=== PATIENT | female | born 1975 ===

== ENCOUNTER 2024-06-28 14:08 | Emergency (ER) | payer OTHER, SELFPAY ==
--- OUTSIDE RECORDS SUMMARY | 2024-06-28 14:10 | XMS_ITS | Clinical Summary ---
Author Organization [facility] Address [address] [place] [id number] Care Team Providers Care Technical Associate Name Role Phone [facility], [facility] Pro vider Allergies Active Allergy Reactions Criticality Noted Date Comments Bacitracin Rash 08/25/2021 Diphenhydramine Hives 10/23/2008 Celecoxib Edema 10/04/2017 Meloxicam Palpitations,Headache 10/04/2017 Penicillins Hives High 06/19/2012 Poison Chio Extract Hives 02/07/2017 Poison Kelso Extract Hives 07/22/2015 Irlqk-Fuobq-Fbusetv-Pramoxine Hives 2017 Wool Hives 05/04/2016 Medications CPAPIndications :SOTERO (obstructive sleep apnea) autoCPAP, heated humidifier, mask, headgear, filters and tubing. Pressure: 4-15cm/H2O Length of Need: 99 1 Device 0 08/12/19 16 Active nicotine (NICOTROL) 10 mg inhalerIndicati ons:Tobacco dependence Inhale 10 mg by mouth every hour while awake as needed for Nicotine Craving. 168 cartridge 02/04/20 17 Active HYDROcodone-gale taminophen, 5-325 mg, (NORCO) per tabletIndicatio ns:Achilles tendinosis Take 1-2 tablets by mouth every 4 hours if needed for Pain Max acetaminophen dose: 4000 mg in 24 hrs. 60 tablet 02/07/2017 9:44 AM CDT 02/08/20 17 Active diclofenac 1 % topical (VOLTAREN) gelIndications: Achilles tendinitis, unspecified laterality Apply topically to affected area(s) 4 times daily. 1-2 grams each application 1 Tube 2 07/22/19 18 Active blood sugar diagnostic (CONTOUR NEXT TEST STRIPS) stripIndication s:Type 2 diabetes mellitus without complication, without long-term current use of insulin (HC) Contour NEXT strips. Test 3 times per day. 100 Strip 12 01/31/20 18 Active lancets (MICROLET LANCET)Indicati ons:Type 2 diabetes mellitus without complication, without long-term current use of insulin (HC) For testing blood sugars at home 100 Each 12 01/31/20 18 Active aspirin chewable 81 mg chewable tablet Take 1 tablet by mouth once daily with a meal. 0 05/04/19 19 Active atorvastatin (LIPITOR) 40 mg tabletIndicatio ns:Type 2 diabetes mellitus without complication, without long-term current use of insulin (HC) Take 1 tablet by mouth at bedtime. 90 tablet 3 12/06/19 19 Active lisinopriL (PRINIVIL; ZESTRIL) 5 mg tabletIndicatio ns:Hypertension , unspecified type,Type 2 diabetes mellitus without complication, without long-term current use of insulin (HC) Take 1 Tablet (5 mg) by mouth once daily. 90 tablet. 3 08/28/19 22 Active metFORMIN (GLUCOPHAGE) 500 mg tabletIndicatio ns:Type 2 diabetes mellitus without complication, without long-term current use of insulin (HC) Take 1 Tablet (500 mg) by mouth 2 times daily with meals. 60 Tablet 1 08/28/19 22 Active triamcinolone (ARISTOCORT; KENALOG) 0.1 % creamIndication s:Psoriasis Apply topically to affected area(s) 3 times daily. 80 g 3 08/28/19 22 Active Active Problems Problem Noted Date Diagnosed Date Type 2 diabetes mellitus wit hout complication, without long-term current use of insulin 01/27/2018 Overview (01/27/2018): Diagnosed 12/2017 Morbid obesity with BMI of 40.0-44.9, adult /08/2015 Tobacco dependence 09/17/2015 Psoriasis 09/17/2015 SOTERO 07/27/2015 AHI-26 (underestimated) 08/12/2015 Resolved Problems Problem Noted Date Diagnosed Date Resolved Date No Significant Past Medical History 09/17/2015 Encounters Date Type Department Care Team Description 06/28/[address] [facility] Nurse Triage Clinic, [facility] Facial Numbness; Weak 06/28/2024 Nurse Triage [facility] [address] [facility] [place] [address] Pcp, No Chest Pain; Dizzy; Lightheaded; Numbness from Last 3 Months Immunizations Name Administration Dates Next Due Influenza, IIV3 (Age >=3 years) 02/08/2012,02/15 Tdap 10/22/2008 Family History Relation Name Status Comments Brother Alive Father Alive heart disease Maternal Grandfather Maternal Grandmother Mother Alive Paternal Grandfather Paternal Grandmother Sister Alive Social History Tobacco Use Types Packs/Day Years Used Date Smoking Tobacco: Every Day Cigarettes Smokeless Tobacco: Never Tobacco Cessation:Ready to Q uit: No; Counseling Given: Yes Comments:Between 0.5 and 1 pack per day Alcohol Use Standard Drinks/Week Comments Not Currently 0 (1 standard drink = 0.6 oz pur e alcohol) Rare PHQ-2 Answer Date Recorded PHQ-2 Score 2 07/02/2018 Comments No Sex and Gender Information Value Date Recorded Sex Assigned at Not on file 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 Gender Identity Not on file Sexual Orientation Not on file Occupation Industry Job Start Date Job End Date [employer] Not on file Not on file Not on file Obstetrics History Last Filed Vital Signs Vital Sign Reading Time Taken Comments Blood Pressure 171/112 08/27/2021 9:12 PM CDT Pulse 97 08/27/2021 9:12 PM CDT Temperature 36.9 C (98.5 F) 08/27/2021 8:06 PM CDT Respiratory Rate 16 08/27/2021 8:06 PM CDT Oxygen Saturation 97% 08/27/2021 9:12 PM CDT Inhaled Oxygen Concentration - - Weight 105.7 kg (233 lb) 08/27/2021 8:06 PM CDT Height 162.6 cm (5' 4) 08/27/2021 8:06 PM CDT Body Mass Index 39.99 08/27/2021 8:06 PM CDT Plan of Treatment Health Maintenance Due Date Last Done Comments HIV for age 15-65 1988 Hepatitis C screening for ag e 18-79 1991 Pneumococcal series for age 50+ (1 of 2 - PCV) 1992 Pap test for age 21-65 1994 Colonoscopy through age 75 2018 Tetanus booster 10/22/2018 10/22/2008 (Comp leted outside of [facility]), 10/22/2008 Depression screening for age 12+ 01/20/2019 01/20/2018, 02/03/2017, 01/28/2017, Additional history exists BMI (ht and wt on same day) for age 18+ 12/06/2019 12/05/2018, 05/04/2018, 01/27/2018, Additional history exists Mammogram for age 45-75 12/08/2019 12/07/2018 Zoster (shingles) series for age 50+ (1 of 2) 2023 Lipids for age 45-75 12/06/2023 12/05/2018, 01/20/2018, 02/03/2017 COVID-19 vaccine series (2023- season) 2024 Influenza for age 50-64 01/01/2024 02/08/2012, 02/15 Tdap Completed 10/22/2008 Medical Devices Implanted Type Area Regional Training Manager Device Identifier Shelf Expiration Date Model / Serial / Lot [id number] - [id number] Implanted:Qty: 1 on 10/27/2015 by Christian Fitzgerald DPM at [facility] [employer] 07/30/2017 [id number] - CP / / [id number] Description:IMPLANT SYSTEM, BIOCOMPOSITE ACHILLES SPEEDBRIDGE [id number] - [id number] Implanted:Qty: 1 on 02/07/2017 by Christian Fitzgerald DPM at [facility] Left: Ankle [employer] 10/30/2021 [id number] / / [id number] Description:Dehydrated Human Amnion/Chorion Membrane Allograft Procedures Procedure Name Priority Date/Time Associated Diagnosis Comments XR MAMMO BILAT DIAGNOSTIC Routine 12/07/2018 10:13 AM CDT Breast lump LIPID PANEL W REFLEX MEASURED LDL Routine 12/05/2018 10:05 AM CDT Type 2 diabetes mellitus without complication, without long-term current use of insulin (HC) from Last 3 Months or Most Recently Relevant to Health Maintenance Results * XR MAMMO BILAT DIAGNOSTIC (12/07/2018 10:13 AM CDT) Anatomical Region Laterality Modality BREASTS, Breast Left, Breast Right Bilateral Mammography, Other 12/07/2018 10:5 2 AM CDT Impressions 12/07/2018 11:56 AM CDT 1. No evidence of malignancy. Benign BILATERAL breast cysts. No abnormality noted in the area of the patient's palpable lump at the 8 o'clock position RIGHT areolar margin. 2. Recommend annual screening mammography. BI-RADS Category 2: Benign Dictated by: Stephanie Rodarte MD @12/07/2018 10:52:54 AM / CRL:delano Narrative 12/07/2018 11:56 AM CDT DIGITAL DIAGNOSTIC BILATERAL MAMMOGRAM, 12/07/2018 BILATERAL BREAST ULTRASOUND, 12/07/2018 INDICATION: Palpable lump at the 8 o'clock position RIGHT areolar margin. TECHNIQUE: Diagnostic BILATERAL mammogram and BILATERAL breast ultrasound. COMPARISON: None. FINDINGS: Scattered fibroglandular densities in both breasts. In the RIGHT breast, there is no abnormality noted in the elmer- or retroareolar region. No ultrasound abnormality in the area of the palpable lump. There is however a nodular density at the 7 o'clock position which on ultrasound is consistent with a small cluster of benign anechoic cyst. Also small cyst at the 10 o'clock position and a prominent skin mole tiny upper outer RIGHT breast. In the LEFT breast there is a small nodular density at the 5 o'clock position which corresponds to an anechoic cyst ultrasound. There is no architectural distortion or malignant calcification in either breast. us Estrella Caceres MD MAMMO Final Re sult * (ABNORMAL) LIPID PANEL W REFLEX MEASURED LDL (12/05/2018 10:05 AM CDT) CHOLESTEROL,TOTAL 186 100 - 199 mg/dL 12/05/2018 10:53 AM CDT [facility] TRIGLYCERIDES 176(H) <150 mg/dL 12/05/2018 10:53 AM CDT [facility] HDL CHOLESTEROL 46 >40 mg/dL 9 10:53 AM CDT [facility] NON-HDL CHOLESTEROL 140 <145 mg/dl 12/05/2018 10:53 AM CDT [facility] CHOL/HDL RATIO 4.04 <4.50 12/05/2018 10:53 AM CDT [facility] LDL CHOLESTEROL 105 <=130 mg/dL 12/05/2018 10:53 AM CDT [facility] PROVIDER ORDERED STATUS RANDOM 12/05/2018 10:53 AM CDT [facility] Blood BLOOD SPECIMEN / Unknown Venipuncture / Unknown 12/05/2018 10:05 AM CDT 12/05/2018 10:08 AM CDT Estrella Caceres MD CHEMISTRY Final Re sult Performing Organization Address City/State/[facility] [place] [address] from Last 3 Months or Most Recently Relevant to Health Maintenance Insurance * Guarantor: [employer] Account Type Relation to Patient Date of Phone Billing Address [employer] Employer [address] [place] [address] Advance Directives * Full Code (Latest Code Status on File) Date Activated Date Inactivated Comments 02/07/2017 1:21 PM 02/07/2017 5:48 PM Question Answer Comments Code Status Discussion: Not Discussed * Full Code Date Activated Date Inactivated Comments 02/07/2017 8:12 AM 02/07/2017 1:21 PM Question Answer Comments Code Status Discussion: Not Discussed * Full Code Date Activated Date Inactivated Comments 10/27/2015 7:29 AM 10/27/2015 5:32 PM Question Answer Comments Code Status Discussion: Not Discussed Care Teams Technical Associate Relationship Specialty Start Date End Date Clinic, [address] [address] PCP - General 01/04/21
[2024-06-28 14:11] VITALS: BP 157/86; PULSE 91; RESP 18; TEMP 36.9; O2SAT 97; BMI 35.4
[2024-06-28 15:02] LABS: Basophils Absolute Auto 0.02 K/uL (0.00-0.30); Basophils Percent Auto 0.2 % (0.0-3.0); Eosinophils Absolute Auto 0.14 K/uL (0.00-0.50); Eosinophils Percent Auto 1.7 % (0.0-7.0); Hematocrit 48.2 % (33.0-51.0); Hemoglobin* 16.4 gm/dL (12.0-16.0); Immature Granulocytes Abs Auto 0.01 K/uL (0.00-0.30); Immature Granulocytes Pct Auto 0.1 %; Lymphocytes Absolute Auto 2.28 K/uL (0.90-2.90); Mean Corpuscular HGB Conc 34 gm/dL (32-36); Mean Corpuscular Hemoglobin 30 pg (26-34); Mean Corpuscular Volume 89 fL (80-100); Monocytes Percent Auto 7.8 % (0.0-11.0); Neutrophils Absolute Auto 5.34 K/uL (1.7-7.0); Neutrophils Percent Auto 63.2 % (42.0-72.0); Platelet Count* 129 K/uL (140-440); RDW Coefficient of Variation % 12.3 % (11.5-15.5); White Blood Count* 8.45 K/uL (4.50-11.00)
[2024-06-28 15:18] LABS: Albumin* 4.3 g/dL (3.3-5.0); Chloride* 104 mmol/L (96-114); Potassium* 4.3 mmol/L (3.6-5.1); Sodium* 133 mmol/L (135-149)
[2024-06-28 15:21] LABS: Alanine Aminotransferase* 34 U/L (4-35); Alkaline Phosphatase* 97 U/L (40-150); Anion Gap 7 mEq/L (7-15); Aspartate Amino Transferase* 28 U/L (12-35); Bilirubin Total* 0.6 mg/dL (0.1-1.5); Blood Urea Nitrogen* 9 mg/dL (7-30); Calcium* 8.8 mg/dL (8.4-10.6); Carbon Dioxide* 22 mmol/L (20-32); Creatinine* 0.5 mg/dL (0.5-1.5); Est. Creatinine Clearance* 114.95; Estimated Glomerular Filt Rate 113 ml/min; Glucose* 228 mg/dL (60-115)
--- NOTE | 2024-06-28 15:28 | ED.GENADULT ---
HPI - General Adult General Date Seen: 06/28/24 Chief complaint: Unspecified Complaint, Adult Stated complaint: episodes where L arm goes numb Time Seen by Provider: 06/28/24 14:13 Source: patient Mode of arrival: ambulatory Limitations: no limitations History of Present Illness HPI narrative: Patient is a 49-year-old female presenting to the emergency department for episodic numbness of her left forearm and left perioral region. Numbness is the volar aspect of arm hand. She states for the past several months she will typically have an episode every day or so of numbness to her left forearm and hand along with numbness around her left perioral region. He yesterday became much more frequent and persisted into today. Is not having the symptoms right now. Due to the increased frequency though she was concerning came to the emergency department for evaluation. Will have random episodes of dizziness and tunnel vision when these occur. They seem to be random when she last think many preceding events that trigger them. States the 1st 1 that occurred back in May was about 30 minutes she thought she was going to fall. Episodes occurred last night she said were very close together and she is unsure exactly how long they lasted. Has not had any symptoms to day but has been very sleepy. No history of heart disease. No history of neurological disease. Has never had symptoms like this prior to May. Has had intermittent hot and cold flashes but no fevers. Denies nausea, vomiting, abdominal pain, weakness, diarrhea, dysuria. Related Data Home Medications ?Medication ?Instructions ?Recorded ?Confirmed No Known Home Medications 06/28/24 06/28/24 Allergies Allergy/AdvReac Type Severity Reaction Status Date / Time Penicillins Allergy Severe Verified 06/28/24 14:21 Review of Systems Status of ROS: Reports: 10 or more systems reviewed and unremarkable except as noted in History and below PFSH PFS Social History Smoking Status: Current every day smoker What tobacco products do you use: cigarettes Smoking packs per day: 1 Smoking cigarettes per day: 20.0 How often do you have a drink containing alcohol: never AUDIT-C Alcohol total score: 0 Non-prescribed substance use: denies use Exam Narrative: Exam Narrative: Const: Well-nourished, Well-developed, in no distress Eyes: PERRL, no conjunctival injection, and symmetrical lids HENT: Atraumatic external nose and ears. Moist mucous membranes. Neck: Symmetric, trachea midline, No thyromegaly. CVS: RRR, No murmurs or gallops. Peripheral pulses 2+ and equal in all extremities RESP: Unlabored respiratory effort. Clear to auscultation bilaterally. GI: Nontender/Nondistended, No rebound or guarding. MSK:Extremities w/o deformity, Normal Active ROM Skin: Warm, Dry. No rashes or lesions. Neuro: Normal Muscle tone, No focal neurological deficits. Psych: Awake, Alert, & Oriented x3. Appropriate mood and affect. Const: Vital Signs, click to edit/add: Vital Signs - 24 hr 06/28/24 14:11 06/28/24 16:34 Temperature 98.5 F 98.0 F Pulse Rate [Right Pulse Oximeter] 91 71 Respiratory Rate 18 18 Blood Pressure [Ri ght Upper Arm] 157/86 H 135/79 Pulse Oximetry 97 97 Oxygen Delivery Me thod Room Air Room Air Course Vital Signs Vital signs: Initial Vital Signs Temperature 98.5 F 06/28/24 14:11 Temperature Source Temporal Artery Scan 06/28/24 14:11 Pulse Rate 91 06/28/24 14:11 Pulse Rhythm Regular 06/28/24 14:11 Pulse Strength 3+ Normal 06/28/24 14:11 Respiratory Rate 18 06/28/24 14:11 Blood Pressure 157/86 H 06/28/24 14:11 Blood Pressure Mean 109 H 06/28/24 14:11 Blood Pressure Position Sitting 06/28/24 14:11 Pulse Oximetry 97 06/28/24 14:11 Oxygen Delivery Method Room Air 06/28/24 14:11 Vital Signs Temperature 98.5 F 06/28/24 14:11 Pulse Rate 91 06/28/24 14:11 Respiratory Rate 18 06/28/24 14:11 Blood Pressure 157/86 H 06/28/24 14:11 Pulse Oximetry 97 06/28/24 14:11 Oxygen Delivery Method Room Air 06/28/24 14:11 Temperature 98.0 F 06/28/24 16:34 Pulse Rate 71 06/28/24 16:34 Respiratory Rate 18 06/28/24 16:34 Blood Pressure 135/79 06/28/24 16:34 Pulse Oximetry 97 06/28/24 16:34 Oxygen Delivery Method Room Air 06/28/24 16:34 Medical Decision Making MDM Narrative Medical decision making narrative: Patient is a 49-year-old female presenting with episodic numbness of her left perioral region and left forearm. Her symptoms do not seem consistent with a stroke but I will order a CT and CTA. The left perioral numbness could be related to hypocalcemia but I am not sure how that would cause the left arm numbness also. Her numbness is not consistent with a dermatome so seems unlikely to be a pinched nerve. There is the possibility of multiple sclerosis is but again this seems less likely I do not believe this requires an emergent contrast-enhanced MRI. Will do a non con MRI. Will order a broad workup including CT in CTA is a the head, CBC, CMP, magnesium, EKG, troponin. Lab work shows no concerning abnormalities. Blood sugar is elevated to 20 but otherwise no concerning findings. Troponin within normal limits. EKG reviewed myself shows no concerning findings. CT and CTA of the head and neck reviewed by myself in a radiologist shows no concerning findings. MRI also reviewed by myself the radiologist shows some nonspecific findings but no signs of acute strokes. She has not had any further symptoms in the emergency department. At this time I am not sure what is causing her symptoms but I believe she is safe for discharge. She is agreeable to this plan Lab Data Labs: Lab Results 06/28/24 Range/Units 14:55 WBC 8.45 (4.50-11.00) K/uL RBC 5.40 H (4.00-5.20) m/uL Hgb 16.4 H (12.0-16.0) gm/dL Hct 48.2 (33.0-51.0) % MCV 89 (80-100) fL MCH 30 (26-34) pg MCHC 34 (32-36) gm/dL RDW Coeff of [place] 12.3 (11.5-15.5) % Plt Count 129 L (140-440) K/uL Neut % (Auto) 63.2 (42.0-72.0) % Lymph % (Auto) 27.0 (20-44) % Josephine % (Auto) 7.8 (0.0-11.0) % Eos % (Auto) 1.7 (0.0-7.0) % Baso % (Auto) 0.2 (0.0-3.0) % Neut # (Auto) 5.34 (1.7-7.0) K/uL Lymph # (Auto) 2.28 (0.90-2.90) K/uL Josephine # (Auto) 0.70 (0.00-0.90) K/UL Eos # (Auto) 0.14 (0.00-0.50) K/uL Baso # (Auto) 0.02 (0.00-0.30) K/uL Abs Immat Gran (auto) 0.01 (0.00-0.30) K/uL Imm/Tot Granulo (auto) 0.1 % Sodium 133 L (135-149) mmol/L Potassium 4.3 (3.6-5.1) mmol/L Chloride 104 (96-114) mmol/L Carbon Dioxide 22 (20-32) mmol/L Anion Gap 7 (7-15) mEq/L BUN 9 (7-30) mg/dL Creatinine 0.5 (0.5-1.5) mg/dL Estimated Creat Clear 114.95 Estimated GFR 113 ml/min Glucose 228 H (60-115) mg/dL Calcium 8.8 (8.4-10.6) mg/dL Magnesium 2.0 (1.5-2.6) mg/dL Total Bilirubin 0.6 (0.1-1.5) mg/dL AST 28 (12-35) U/L ALT 34 (4-35) U/L Alkaline Phosphatase 97 (40-150) U/L Troponin I < 0.01 L (0.01-0.04) ng/mL Total Protein 7.0 (6.0-8.3) g/dL Albumin 4.3 (3.3-5.0) g/dL Imaging Data CT scan head: Attestation: I have reviewed the pertinent imaging results. Radiologist's impression: No acute intracranial hemorrhage or mass effect. Please note that all CT scans at this facility use dose modulation, iterative reconstruction, and/or weight-based dosing when appropriate to reduce radiation dose to as low as reasonably achievable. Dictated by Bro Denis MD @ 06/28/2024 4:21:59 PM MR Brain: Attestation: I have reviewed the pertinent imaging results. Radiologist's impression: 1. No acute intracranial abnormalities. 2. Few scattered foci of T2 prolongation supratentorial white matter nonspecific. Differential considerations include sequelae of migraine headaches, prior inflammation, and chronic small vessel disease. Dictated by Rhys Mcdonough MD @ 06/28/2024 4:36:16 PM CTA head and neck: Attestation: I have reviewed the pertinent imaging results. Radiologist's impression: Preliminary Report: No proximal large vessel occlusion or cervical arterial stenosis. ECG Data Attestation: I personally reviewed and interpreted this ECG as follows: Prior ECG tracings: not available for review Interpretation: Normal sinus rhythm with a rate of 83 beats per minute, normal intervals, normal axis, no ST or T-wave abnormalities Discharge Plan Discharge Clinical Impression: Numbness Patient Disposition: Home, Self-Care Condition: Stable Instructions: Paresthesia (ED) Additional Instructions: At this time I do not know was causing her symptoms. Your CT scan showed no acute concerning abnormalities. Your MRI showed some nonspecific findings but no sign of strokes. You may want follow-up with your primary care provider and possibly further Neurology for a contrast MRI if they deem this necessary. Return to emergency department for new or worsening symptoms. Prescriptions: No Action No Known Home Medications Follow Up/Referrals: Provider,Not a Local [Primary Care Provider] - Stand Alone Forms: [employer] Info Instructions
[2024-06-28 15:42] LABS: Slide Review Reflex No
[2024-06-28 15:47] LABS: Troponin I* < 0.01 ng/mL (0.01-0.04)
[2024-06-28 16:34] VITALS: BP 135/79; PULSE 71; RESP 18; TEMP 36.7; O2SAT 97
== END 2024-06-28 17:10 | disposition home or self-care (01) ==
PROVIDERS: Emergency Provider Student in an Organized Health Care Education/Training Program
DX: R20.0 Anesthesia of skin (principal)
CPT/HCPCS: 36415; 70450; 70496; 70498; 70551; 80053; 83735; 84484; 85025; 93005; 99284; 99285; Q9967